=== PATIENT | female | born 2005 | race African-American/Black ===

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

== ENCOUNTER 2023-01-01 13:28 | Emergency (ER) | payer OTHER ==
[2023-01-01 13:39] VITALS: RESP 18; BMI 25.7
[2023-01-01] MEDS ORDERED: ACETAMINOPHEN 500 MG TABLET (FP) PO ONE (14:34)
[2023-01-01] MEDS ORDERED: SODIUM CHLORIDE 0.9% 500 ML INFUS.BAG IV ONE (14:34)
[2023-01-01] MEDS ORDERED: KETOROLAC TROMETHAMINE 30 MG/1 ML VIAL IVPUSH ONE (14:34)
[2023-01-01] MEDS ORDERED: FAMOTIDINE 20 MG/50 ML IVPB 20 MG/50 ML MG IVPB ONE ×2 (14:34→14:48)
[2023-01-01] MEDS ORDERED: ONDANSETRON 4 MG/2 ML VIAL IVPUSH ONE (14:34)
[2023-01-01] MEDS ORDERED: KETOROLAC TROMETHAMINE 30 MG/1 ML VIAL ONE (14:48)
[2023-01-01] MEDS ORDERED: ONDANSETRON 4 MG/2 ML VIAL ONE (14:48)
[2023-01-01] MEDS ORDERED: ACETAMINOPHEN 500 MG TABLET (FP) ONE (14:49)
[2023-01-01 15:24] LABS: BASO % 0.6 % (0-2.0); EOS % 0.5 % (0-4.5); HEMATOCRIT 39.8 % (32.4-45.2); HEMOGLOBIN 13.5 GM/dL (10.7-15.3); LYMPH % 5.9 % (8-40); MCH 28.4 pg (25.7-33.7); MCHC 33.8 g/dl (32.0-36.0); MONO % 8.9 % (3.8-10.2); NEUT % 84.1 % (42.8-82.8); PLATELET COUNT 333 10^3/uL (134-434); RBC 4.74 M/mm3 (3.60-5.2); RDW 14.3 % (11.6-15.6); WHITE BLOOD COUNT 7.8 K/mm3 (4.0-10.0)
[2023-01-01 15:31] LABS: POTASSIUM 4.2 mmol/L (3.5-5.1)
[2023-01-01 15:32] LABS: CALCIUM 9.2 mg/dL (8.5-10.1)
[2023-01-01 15:33] LABS: BLOOD UREA NITROGEN 3.2 mg/dL (7-18)
[2023-01-01 15:36] LABS: CREATININE 0.8 mg/dL (0.55-1.3)
[2023-01-01 16:22] VITALS: BP 118/72; PULSE 115; TEMP 99.2
== END 2023-01-01 17:26 | disposition home or self-care (01) ==
LOC: JERFT 13:28 → JER 13:28 → JERFT 17:26
PROC: 3E033GC Introduction of Other Therapeutic Substance into Peripheral Vein, Percutaneous Approach (ICD-10-PCS; principal; 2023-01-01)
PROC: 3E0333Z Introduction of Anti-inflammatory into Peripheral Vein, Percutaneous Approach (ICD-10-PCS; 2023-01-01)
PROC: 3E033GC Introduction of Other Therapeutic Substance into Peripheral Vein, Percutaneous Approach (ICD-10-PCS; 2023-01-01)
DX: R09.81 Nasal congestion (principal); R51.9 Headache, unspecified; R42 Dizziness and giddiness; R05.9 Cough, unspecified; J02.9 Acute pharyngitis, unspecified; R07.89 Other chest pain; R50.9 Fever, unspecified; R11.0 Nausea; M79.10 Myalgia, unspecified site; R59.0 Localized enlarged lymph nodes; J01.90 Acute sinusitis, unspecified
CPT/HCPCS: 36415; 71046-TC-FY; 80048; 84075; 84450; 84460; 84703; 85025; 99284-25